=== PATIENT | male | born 1975 | race Two or more races ===

== ENCOUNTER 2025-04-15 12:10 | Emergency (ER) | payer MEDICAID, SELFPAY ==
[2025-04-15 12:58] VITALS: BP 175/94; PULSE 98; RESP 18; TEMP 37.4; O2SAT 98; BMI 235.9
--- NOTE | 2025-04-15 13:12 | PD.EDRME ---
Rapid Medical Screening Exam RME Arrival date/time: 04/15/25 12:10 Chief Complaint: Nausea/Vomiting/Diarrhea Vital signs: Vital Signs Temperature 99.3 F 04/15/25 12:58 Pulse Rate 98 04/15/25 12:58 Respiratory Rate 18 04/15/25 12:58 Blood Pressure 175/94 H 04/15/25 12:58 Pulse Oximetry (%) 98 04/15/25 12:58 Oxygen Delivery Method Room Air 04/15/25 12:58 Pulse ox room air is 98% Vital signs reviewed by provider: Yes RME Narrative: 49-year-old male presents to the ED with complaint of his fingers and his jaws as locking up. Also complains of shaky hands that began 1 month ago.
[2025-04-15 13:41] LABS: Collection Type, Urine Clean Catch
[2025-04-15 13:48] LABS: Basophils # (Auto) 0.0 Thou/mm3 (0.0-0.2); Basophils % (Auto) 0 % (0-2.5); Eosinophils # (Auto) 0.0 Thou/mm3 (0.0-0.5); Eosinophils % (Auto) 0 % (0-10); Hematocrit 36.1 % (41.0-53.0); Hemoglobin 12.6 g/dL (13.5-16.0); Immature Granulocytes Auto 0.01 Thou/mm3 (0.00-0.00); Lymphocytes # (Auto) 0.8 Thou/mm3 (1.0-4.8); Lymphocytes % (Auto) 15 % (10-50); Mean Corpuscular HGB Conc 34.9 g/dl (31.0-37.0); Mean Corpuscular Hemoglobin 29.9 pg (25.0-35.0); Mean Corpuscular Volume 86 fL (80-100); Monocytes # (Auto) 0.5 Thou/mm3 (0.0-0.8); Monocytes % (Auto) 9 % (0-12); Neutrophils # (Auto) 4.1 Thou/mm3 (1.8-7.7); Neutrophils % (Auto) 75 % (37-80); Nucleated Red Blood Cell # 0.00 Thou/mm3 (0.00-0.00); Nucleated Red Blood Cell % 0 /100 WBC (0); Platelet Count 160 Thou/mm3 (140-440); RDW Standard Deviation 37.6 fL (35.1-43.9); Red Blood Count 4.22 Miln/mm3 (4.50-5.90); White Blood Count 5.5 Thou/mm3 (3.8-10.6)
[2025-04-15 13:48] LABS: Bilirubin,Urine Negative (Negative); Blood,Urine Negative (Negative); Clarity,Urine Clear (Clear/Hazy); Color,Urine Yellow (Lt Yel-Yel); Culture Indicated,Urine Not Indicated; Glucose, Urine 1+ (Negative); Ketones,Urine Negative (Negative); Leukocyte Esterase,Urine Negative (Negative); Nitrite,Urine Negative (Negative); PH,Urine 6.0 (5.0-7.0); Protein,Urine 1+ (Neg - Trace); RBC,Urine 3 /hpf (0-3); Specific Gravity,Urine 1.028 (1.001-1.035); Squamous Epithelial Cell,Urine < 1 /hpf (0-5); Urobilinogen,Urine Negative mg/dL (0.0-1.0); WBC,Urine 1 /hpf (0-5)
[2025-04-15 14:08] LABS: Alanine Aminotransferase 66 U/L (10-49); Albumin, Serum 4.7 gm/dL (3.5-5.0); Albumin/Globulin Ratio 1.7 (1.2-2.2); Alkaline Phosphatase 95 U/L (46-116); Anion Gap 12 (7-16); Aspartate Amino Transferase 169 U/L (0-34); BUN/Creatinine Ratio 8 Ratio (12-20); Bilirubin,Total 1.8 mg/dL (0.3-1.2); Blood Urea Nitrogen 7 mg/dL (9-23); Calcium 8.9 mg/dL (8.3-10.6); Calcium (Corrected) 8.9 mg/dL (8.5-10.1); Carbon Dioxide 26.8 mMol/L (20.0-31.0); Chloride 101 mMol/L (98-107); Creatinine (Component) 0.9 mg/dL (0.6-1.3); Estimated Creatinine Clearance 443.1 mL/min (>60); Globulin 2.7 gm/dL (2.3-3.5); Glucose 114 mg/dL (74-106); Osmolality,Calculated 278 (275-295); Potassium 3.2 mMol/L (3.4-5.1); Sodium 140 mMol/L (136-145); Total Protein 7.4 gm/dL (5.7-8.2); eGFR > 60 See Note
--- NOTE | 2025-04-15 18:43 | EDNOTE_ITS ---
Nausea/Vomit./Diarrhea-RME/HPI General Chief complaint: Nausea/Vomiting/Diarrhea Stated complaint: NAUSEA/SHAKEY TODAY Time Seen by Provider: 04/15/25 17:48 Arrival date/time: 04/15/25 12:10 RME / HPI RME / HPI Narrative: 49-year-old male presents to the ED with complaint of his fingers and his jaws as locking up. Also complains of shaky hands that began 1 month ago. ------- This section includes all my notes and documentations, including HPI, PE, and ED course. Carlos Bhatt MD HPI: 49yo male presents to the ED for complaints of N/V and shakiness. Patient has been vomiting every other day for the last one month and was concerned when his hands started shaking today. No fever, chills, diarrhea, abdominal pain or any other associated symptoms. No other complaints reported. ROS: All negative except as documented in HPI. Physical Exam: General: Alert and oriented. No acute distress when remaining still. Eyes: Conjunctivae and lids clear. ENT: No nasal congestion. Neck: Supple. Heart: RRR. Lungs: No respiratory distress. Good air movement. No rhonchi, wheezing, rales. Abdomen: Soft and nontender. Normal bowel sounds. No distension. No rebound or guarding. Back: No CVA tenderness. Skin: Warm and dry. Neuro: Alert and oriented X 3. I reviewed all diagnostic test results. Blood tests and urine tests are unremarkable except for Potassium 3.2. At this point, diagnoses include vomiting, hypokalemia, and shaking. Treatment here included Potassium, Xanax, and Zofran. Significant improvement noted. Recommended more outpatient workup. Based on my best medical judgment, made decision no further evaluation or treatment indicated at this time. Patient understands and agrees to the discharge instructions customized and printed, see below. Discharge Instructions from Dr. Bhatt printed for you: 1. We are sorry you waited for a long time. 2. For vomiting, take Zofran for nausea/vomiting. For good hydration, increase oral fluid and maintain clear urine. If dark or yellow, increase oral fluid. Some good choices are water (but not only water because it will cause electrolyte abnormalities), sports drinks like Gatorade (with less sugar content), coconut water, chicken stock, and other fluid with electrolytes (like Pedialyte). 3. Your potassium level was low today causing your symptoms. Eat a banana daily. 4. For shaking, take Xanax as needed. 5. See a private doctor outside the ER on 04/16/2025 for recheck and further care. This is important because you will need more tests and investigation to find the cause and treatment of your symptoms. Ask to review all test results and official radiology reports, to make sure you receive all necessary follow-ups and monitoring. To make sure there is no serious intra-abdominal condition, ask for help with mo re investigation not available here in the ER. Such as EGD or scoping the stomach, colonoscopy or scoping the colon, and referral to see vascular technician. 6. Seek immediate medical care with worsening or with any concerns. Carlos Bhatt MD Related Data Previous Rx's ?Medication ?Instructions ?Recorded alprazolam 0.5 mg tablet (Xanax) 0.5 mg PO BID PRN anx iety #20 tabs 04/15/25 ondansetron 4 mg disintegrating 4 mg PO TID PRN nausea and 04/15/25 tablet vomiting 30 days #10 tabs Allergies Allergy/AdvReac Type Severity Reaction Status Date / Time No Known Allergies Allergy Verified 04/15/25 12:13 Review of Systems Review of Systems Systems Reviewed: All systems reviewed, normal except as documented Past Medical History Social History SMOKING STATUS: Never smoker ED Exam Narrative Physical exam: As noted in HPI. Course Quality Measures none Orders Category Date Time Status CBC Stat Lab 04/15/25 13:31 Completed CMP [Comprehensive Metabolic Panel] Stat Lab 04/15/25 13:31 Completed UA, C/S IF [Urinalysis, C/S if Indicated] Stat Lab 04/15/25 13:20 Completed ALPRazoLAM [Xanax] Med 04/15/25 18:44 Discontinued 0.5 mg PO X1 ONE KCL 10% Liq UDC 15 ML Med 04/15/25 18:26 Discontinued 40 meq PO X1 ONE Ondansetron Odt [Zofran Odt] Med 04/15/25 18:44 Discontinued 4 mg PO X1 ONE Vital Signs Vital signs: Vital Signs Temperature 99.3 F 04/15/25 12:58 Pulse Rate 98 04/15/25 12:58 Respiratory Rate 18 04/15/25 12:58 Blood Pressure 175/94 H 04/15/25 12:58 Pulse Oximetry (%) 98 04/15/25 12:58 Oxygen Delivery Method Room Air 04/15/25 12:58 Nausea/Vomiting/Diarrhea MDM Narrative MDM Narrative:: 49yo male presents to the ED for complaints of N/V and shakiness. Patient has been vomiting every other day for the last one month and was concerned when his hands started shaking today. No fever, chills, diarrhea, abdominal pain or any other associated symptoms. No other complaints reported. Patient data External records reviewed:: [facility] previous records (Per chart review, patient has no previous ED visits or admissions to this facility.) Clinical information provided by:: patient Social determinants that could affect healthcare access:: none Patient has the following chronic illnesses:: none How is presenting disease/condition affected by chronic disease/condition?: no chronic disease Evaluation data The following diagnostics were reviewed and interpreted by me:: lab results Lab and/or radiology exams considered but not ordered:: none Interpretation Summary: I reviewed all diagnostic test results. Blood tests and urine tests are unremarkable except for Potassium 3.2. Medications / Prescriptions Medications / Prescriptions considered but not ordered:: none Medication administrations:: Medication Administration History Discontinued Medications Alprazolam (Alprazolam 0.25 Mg Tablet) 0.5 mg PO X1 ONE Stop: 04/15/25 18:45 Ondansetron HCl (Ondansetron Odt 4 Mg Tabrap) 4 mg PO X1 ONE; Protocol Stop: 04/15/25 18:45 Potassium Chloride (Potassium Chloride 10% 20 Meq/15 Ml Udc) 40 meq PO X1 ONE Stop: 04/15/25 18:27 Potassium, Xanax, Zofran Consultations Consultation(s) initiated? (list below): No Diagnosis Nausea Differential Diagnosis: traveler's diarrhea, food poisoning, gastroenteritis, clostridium difficile infection, drug-induced nausea and vomiti ng and dehydration Most likely diagnosis given after review of the tests above:: Vomiting, Hypokalemia, Shaking Admission Indicated Admission indicated?: not indicated Explain why admission is indicated or not indicated:: With significant improvement and no condition needing emergent intervention, there was no indication for admission. Admission Request Was there a request for admission?: No Disposition Plan Disposition Plan: Discharge Discharge Attestation Discharge Attestation: The patient and all family members were given an opportunity to ask questions and understood the discharge instructions. Discharge instructions specifically effects, indications for sooner follow up or return to the emergency department, and the expected course of current diagnosis. Patient condition: Stable Discharge Plan Plan Patient Disposition: HOME (Self Care) Prescriptions/Referrals Prescriptions/Med Rec: New alprazolam [Xanax] 0.5 mg tablet 0.5 mg PO BID PRN (Reason: anxiety) Qty: 20 0RF ondansetron 4 mg tablet,disintegrating 4 mg PO TID PRN (Reason: nausea and vomiting) 30 Days Qty: 10 0RF Referrals: No Primary/Family,Physician [Primary Care Provider] - In 1 week Problem List Clinical Impression: Vomiting, Hypokalemia, Shaking Patient/Caregiver Discharge Instructions Discharge Activity: activity as tolerated Education Materials: ED Hypokalemia, ED Vomiting (Adult) Additional Instructions: Discharge Instructions from Dr. Bhatt printed for you: 1. We are sorry you waited for a long time. 2. For vomiting, take Zofran for nausea/vomiting. For good hydration, increase oral fluid and maintain clear urine. If dark or yellow, increase oral fluid. Some good choices are water (but not only water because it will cause electrolyte abnormalities), sports drinks like Gatorade (with less sugar content), coconut water, chicken stock, and other fluid with electrolytes (like Pedialyte). 3. Your potassium level was low today causing your symptoms. Eat a banana daily. 4. For shaking, take Xanax as needed. 5. See a private doctor outside the ER on 04/16/2025 for recheck and further care. This is important because you will need more tests and investigation to find the cause and treatment of your symptoms. Ask to review all test results and official radiology reports, to make sure you receive all necessary follow-ups and monitoring. To make sure there is no serious intra-abdominal condition, ask for help with more investigation not available here in the ER. Such as EGD or scoping the stomach, colonoscopy or scoping the colon, and referral to see vascular technician. 6. Seek immediate medical care with worsening or with any concerns. Instrucciones de niyah del Dr. Bhatt, impresas para usted: 1. Lamentamos desouza larga espera. 2. Si tiene v?mitos, tome Zofran para las n?useas y los v?mitos. Para nitin buena hidrataci?n, aumente la ingesta de l?quidos y mantenga la orina chino. Si la orina es oscura o amarilla, aumente la ingesta de l?quidos. Algunas buenas opciones son el agua (jos no solo agua, ya que puede causar alteraciones electrol?darrell), bebidas deportivas tito Gatorade (con menos az?car), agua de tamy, caldo de rhianna y otros l?quidos con electrolitos (tito Pedialyte). 3. Desouza nivel de potasio estuvo bajo hoy, lo que le caus? los s?ntomas. Coma un pl?danny al d?a. 4. Si tiene temblores, tome Xanax seg?n sea necesario. 5. Consulte con un m?dico privado fuera de urgencias el 05/16/2025 para nitin revisi?n y atenci?n adicional. [place] es importante porque necesitar? m?s pruebas e investigaciones para determinar la causa y el tratamiento de dean s?ntomas. [place] que revisen todos los resultados de las pruebas y los informes radiol?gicos oficiales para asegurarse de recibir todos los seguimientos y la monitorizaci?n necesarios. Para asegurarse de que no haya nitin afecci?n intraabdominal grave, solicite ayuda con otras pruebas que no est?n disponibles en urgencias, tito nitin endoscopia estomacal (EGD) o nitin endoscopia g?strica, nitin colonoscopia o nitin endoscopia de colon, y la derivaci?n a un gastroenter?logo. 6. Busque atenci?n m?dica inmediata si presenta empeoramiento o si tiene alguna inquietud. Print Language: Sami Stand Alone Forms: Dariela Award Info., Patient Portal Info Letter
[2025-04-15] MEDS: POTASSIUM CHLORIDE 10% 20 MEQ/15 ML UDC 40 MEQ PO (19:27)
[2025-04-15] MEDS: ONDANSETRON ODT 4 MG TABRAP PO (19:28)
== END 2025-04-15 19:35 | disposition home or self-care (01) ==
PROVIDERS: Physician Assistant; Emergency Provider Emergency Medicine
DX: R11.2 Nausea with vomiting, unspecified (principal); E87.6 Hypokalemia; R25.1 Tremor, unspecified
CPT/HCPCS: 36415; 80053; 81001; 85025; 99283; Q0162; A9270